=== PATIENT | male | born 1940 | race Hispanic/Latino ===

== ENCOUNTER → 2024-08-18 | Outpatient (CLI) | payer OTHER ==
[2024-08-18 12:15] LABS: BASOPHILS # (AUTO) 0.04 K/uL (0.00-0.20); BASOPHILS % (AUTO) 0.6 % (0.0-5.0); EOSINOPHILS # (AUTO) 0.22 K/uL (0.00-0.70); EOSINOPHILS % (AUTO) 3.3 % (0.0-8.0); HEMATOCRIT 43.9 % (42-54); IMMATURE GRANULOCYTE ABSOLUTE 0.02 K/uL (0-1); LYMPHOCYTES # (AUTO) 1.6 K/uL (1.0-4.8); MEAN CORPUSCULAR HEMOGLOBIN 32.1 pg (27.0-33.0); MEAN CORPUSCULAR HGB CONC 31.9 g/dL (32.0-36.0); MEAN CORPUSCULAR VOLUME 100.7 fL (79-99); MONOCYTES # (AUTO) 0.6 K/uL (0.1-1.0); MONOCYTES % (AUTO) 8.6 % (3.0-13.0); NEUTROPHILS # (AUTO) 4.2 K/uL (1.8-7.7); NEUTROPHILS % (AUTO) 63.2 % (40.0-77.0); PLATELET COUNT (AUTO) 231 K/uL (130-400); RED BLOOD CELL COUNT(AUTO) 4.36 MIL/uL (4.50-6.20); RED CELL DISTRIBUTION WIDTH 13.2 % (11.0-15.5); WHITE BLOOD COUNT (AUTO) 6.7 K/uL (4.8-10.8)
[2024-08-18 12:35] LABS: HEMOGLOBIN A1C 7.2 % (4.0-6.0)
[2024-08-18 12:40] LABS: ALBUMIN 3.6 g/dL (3.5-5.0); BILIRUBIN,DIRECT 0.1 mg/dL (0.0-0.3); BILIRUBIN,TOTAL 0.6 mg/dL (0.2-1.0); CREATININE 0.8 mg/dL (0.5-1.3); POTASSIUM 4.4 mmol/L (3.5-5.1); THYROID STIMULATING HORMONE 4.26 uIU/mL (0.36-3.74)
[2024-08-18 13:39] LABS: B-TYPE NATRIURETIC PEPTIDE 66 pg/mL (0-100)
== END | disposition home or self-care (01) ==
LOC: LAB 11:36
PROVIDERS: ATTEND Internal Medicine Cardiovascular Disease
DX: I11.0 Hypertensive heart disease with heart failure (principal); I50.9 Heart failure, unspecified; R06.02 Shortness of breath; R73.09 Other abnormal glucose
CPT/HCPCS: 36415; 80048; 80061; 80076; 83036; 83880; 84443; 85025

== ENCOUNTER → 2024-10-14 | Outpatient (CLI) | payer OTHER ==
--- NOTE | 2024-10-14 13:50 | NUR ---
MBSS COMPLETED (OUTPATIENT). No aspiration/no penetrations. Recommend easy to chew solids, thin liquids and pills whole with liquids as tolerated. Compensatory strategies: 1. sit upright during oral intake 2. small bites/sips 3. slow oral intake 4. extra dry swallows DIAGNOSTIC FINDINGS: Oropharyngeal swallowing is within functional limits for his age. No penetrations or aspiration observed. Pt with mild pharyngeal residue cleared with extra dry swallows. Otherwise, exam was negative for etiology of patients c/o globus sensation/choking with oral intake. Pt may want to consider a GI consult for upper GI series. All questions answered. Addendum: 10/14/[address] [facility]DA[facility] Amended: Links added. 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 REFUGE MANAGER reviewed results and recommendations with patient, daughter and spouse. REFUGE MANAGER educated patient on risks and consequences of aspiration. Speech therapy not warranted at this time.
--- NOTE | 2024-10-14 16:16 | HMCIMG ---
MODIFIED BARIUM SWALLOW W CINE REASON: DYSPHAGIA FOLLOWING OTHER CEREBRALVASCULAR DISEASE FINDINGS: Fluoroscopic assistance was provided to the speech pathologist while performing examination. For findings and dietary recommendations, refer to speech pathologist's report. FLUORO TIME: 2.4 minutes IMPRESSION: Modified barium swallow as described.
== END | disposition home or self-care (01) ==
LOC: RAH 13:14
PROVIDERS: ATTEND Family Medicine
DX: I69.891 Dysphagia following other cerebrovascular disease (principal); K21.9 Gastro-esophageal reflux disease without esophagitis
CPT/HCPCS: 74230; 92611